=== PATIENT | female | born 1960 | race African-American/Black ===

== ENCOUNTER 2017-10-17 15:27 | Emergency (ER) | payer OTHER ==
[~2017-10-17] VITALS: Ht 167.6 cm; Wt 86.2 kg
--- NOTE | ~2017-10-17 | EKG ---
[address] [place] [address] ELECTROCARDIOGRAM REPORT Name: CHRISTY REICH Room #: DEP [facility]#: [id number] Admission: 10/17/17 Attend Phys: Discharge: 10/17/17 Date of : 62 Report #: [id number] THIS REPORT FOR: //name// [facility] ED Test Date: 2017-10-17 Test Time: 16:23:13 Pat Name: CHRISTY REICH Department: Room: Gender: F Atg Architect: tamar : 1960 Requested By: Emily Carrasquillo Order Number: [id number] MD: Catalino Marin Measurements Intervals [place] Rate: 68 P: 72 [place]: 143 QRS: -5 QRSD: 106 T: 27 QT: 432 QTc: 460 Interpretive Statements Sinus rhythm Low voltage, precordial leads RSR' in V1 or V2, right VCD or RVH No previous ECG available for comparison Electronically Signed On 10-17-2017 20:40:17 CDT by Catalino Marin [email or web address] <ELECTRONICALLY SIGNED> By: Catalino Marin MD 10/17/17 2040 162 22 Catalino Marin MD /VJ
[~2017-10-17 15:27] MED LIST: APAP500 PO; CLARITIN10 MG PO; NORCO 5-325 TA1 EACH PO; PENICILLIN V P500 MG PO; PENICILLIN VK500 M1 PO; PHENERGAN 25 MG25 M1 PO; PROZAC40 MG PO; REMERON15 MG PO; SEROQUEL300 MG PO; XANAX1 MG PO
[2017-10-17 15:52] LABS: URINE BILIRUBIN NEGATIVE (Negative); URINE BLOOD NEGATIVE (Negative); URINE CLARITY CLEAR; URINE COLOR YELLOW; URINE GLUCOSE-RANDOM* NEGATIVE (Negative); URINE KETONES NEGATIVE (Negative); URINE LEUKOCYTES NEGATIVE (Negative); URINE NITRITE NEGATIVE (Negative); URINE PROTEIN (DIPSTICK) NEGATIVE (Negative); URINE SPECIFIC GRAVITY 1.025 (1.005-1.035); URINE UROBILINOGEN 0.2 E.U./dl (0.2-1.0)
[2017-10-17 15:59] LABS: ABSOLUTE NEUTROPHILS 3.2 thou/uL (1.4-8.2); BASOPHILS 0.9 % (0.0-2.0); EOSINOPHILS 2.3 % (0.0-3.0); HEMATOCRIT 41.8 % (37.0-47.0); HEMOGLOBIN 14.1 gm/dL (12.0-15.0); LYMPHOCYTES 36.6 % (24.0-44.0); MCHC 33.6 g/dL (28.0-37.0); MCV 92.2 fL (80.0-100.0); MONOCYTES 6.9 % (1.0-8.0); PLATELET COUNT 209 thou/uL (150-400); POLYS 53.3 % (36.0-66.0); RBC 4.54 mil/uL (4.20-5.00); RDW 14.6 % (10.5-14.5)
[2017-10-17 16:07] LABS: CALCIUM 9.2 mg/dL (8.5-10.1); POTASSIUM 3.8 mmol/L (3.5-5.1)
[2017-10-17 16:19] LABS: LARGE PLATELETS RARE
[2017-10-17 16:33] LABS: ALBUMIN 3.4 g/dL (3.4-5.0); DIRECT BILIRUBIN 0.4 mg/dL (<0.1-0.3); TOTAL BILIRUBIN 0.6 mg/dL (<0.1-1.0); TOTAL PROTEIN 7.5 g/dL (6.4-8.2)
[2017-10-17 18:11] LABS: AMP/METHAMP Negative (Negative); BARBITURATES Negative (Negative); BENZODIAZEPINES POSITIVE (Negative); COCAINE Negative (Negative); METHADONE Negative (Negative); OPIATES Negative (Negative); PCP Negative (Negative)
[2017-10-17] MEDS ORDERED: NORCO 5-325 TA1 EACH PO (20:21)
[2017-10-17 20:39] VITALS: BP 156/76
== END 2017-10-17 20:40 | disposition home or self-care (01) ==
LOC: ER 15:27
PROVIDERS: Emergency Medicine
DX: K80.20 Calculus of gallbladder without cholecystitis without obstruction (principal); R94.5 Abnormal results of liver function studies; F43.10 Post-traumatic stress disorder, unspecified; Z87.891 Personal history of nicotine dependence; Z88.1 Allergy status to other antibiotic agents; Z88.6 Allergy status to analgesic agent

== ENCOUNTER 2020-06-01 13:17 | Emergency (ER) | payer OTHER ==
[~2020-06-01] VITALS: Ht 167.6 cm; Wt 90.7 kg
[2020-06-01] MEDS ORDERED: CATAPRES0.1 MG PO (13:30)
[2020-06-01] MEDS ORDERED: VITAMIN D325 MC1 PO (13:30)
[2020-06-01] MEDS ORDERED: INDERAL LA120 M1 PO (13:30)
[2020-06-01] MEDS ORDERED: ASA81BEC PO (13:31)
--- NOTE | 2020-06-01 15:40 | EKG ---
[place] [address] [address] [employer] [place] [address] ELECTROCARDIOGRAM REPORT Name: CHRISTY REICH Room #: REG [facility]#: [id number] Admission: 06/01/20 Attend Phys: Discharge: Date of : 62 Report #: [id number] [facility] ED Test Date: 2020-06-01 Test Time: 14:54:41 Pat Name: CHRISTY REICH Department: Room: Gender: F Hydrodynamicist: ROSANGELA : 1960 Requested By: Douglas Clemente Order Number: [id number] MD: Catalino Marin Measurements Intervals [place] Rate: 67 P: 64 [place]: 145 QRS: -13 QRSD: 99 T: 7 QT: 399 QTc: 422 Interpretive Statements Sinus rhythm Low voltage, precordial leads RSR' in V1 or V2, right VCD or RVH Compared to ECG 10/17/2017 16:23:13 No significant changes Electronically Signed On 06-01-2020 15:40:27 LOG SAWYER by Catalino Marin [email or web address] <ELECTRONICALLY SIGNED> By: Catalino Marin MD 06/01/20 1540 1454 1454 Catalino Marin MD /VJ
[2020-06-01 16:29] LABS: ABSOLUTE NEUTROPHILS 5.2 thou/uL (1.4-8.2); EOSINOPHILS 2.5 % (0.0-3.0); HEMATOCRIT 44.1 % (37.0-47.0); HEMOGLOBIN 14.5 gm/dL (12.0-15.0); LYMPHOCYTES 37.1 % (24.0-44.0); MCH 31.3 pg (26.0-34.0); MCHC 32.8 g/dL (28.0-37.0); MCV 95.4 fL (80.0-100.0); PLATELET COUNT 249 thou/uL (150-400); POLYS 53.4 % (36.0-66.0); RBC 4.63 mil/uL (4.20-5.00); RDW 13.5 % (10.5-14.5); WBC 9.7 thou/uL (4.0-11.0)
[2020-06-01 16:38] LABS: ANION GAP 10 mmol/L (7-16); BUN 7 mg/dL (7-18); CALCIUM 9.3 mg/dL (8.5-10.1); CHLORIDE 106 mmol/L (98-107); CO2 29 mmol/L (21-32); GLUCOSE 106 mg/dL (74-106); POTASSIUM 4.1 mmol/L (3.5-5.1); SODIUM 145 mmol/L (136-145)
[2020-06-01 16:49] LABS: ALBUMIN 3.6 g/dL (3.4-5.0); LIPASE 107 U/L (73-393); SGOT 39 U/L (15-37); SGPT 59 U/L (30-65); TOTAL BILIRUBIN 0.2 mg/dL (0.2-1.0); TOTAL PROTEIN 7.7 g/dL (6.4-8.2); TROPONIN-I <0.06 ng/mL (<0.06)
[2020-06-01 17:10] LABS: URINE BILIRUBIN NEGATIVE (Negative); URINE BLOOD 2+ (Negative); URINE CLARITY CLEAR; URINE COLOR YELLOW; URINE GLUCOSE-RANDOM* NEGATIVE (Negative); URINE KETONES NEGATIVE (Negative); URINE LEUKOCYTES-REFLEX NEGATIVE (Negative); URINE NITRITE-REFLEX NEGATIVE (Negative); URINE PROTEIN (DIPSTICK) NEGATIVE (Negative); URINE UROBILINOGEN 0.2 E.U./dl (0.2-1.0)
[2020-06-01 17:24] LABS: SQUAMOUS >10 Many /LPF (0-3)
[2020-06-01 17:25] LABS: BACTERIA-REFLEX None Seen /HPF (None Seen); CASTS None Seen /LPF (None Seen); CRYSTALS None Seen /LPF (None Seen); URINE RBC 3-10 Few /HPF (0-2); URINE WBC-REFLEX 0-5 Rare /HPF (0-5)
[2020-06-01] MEDS ORDERED: PROAIR HFA8.5 GM INH (19:08)
[2020-06-01] MEDS ORDERED: DOXYCYCLINE 10100 MG PO (19:08)
[2020-06-01 19:17] VITALS: BP 130/70
== END 2020-06-01 19:17 | disposition home or self-care (01) ==
LOC: ER 13:17
PROVIDERS: Physician Assistant
DX: R06.02 Shortness of breath (principal); R00.2 Palpitations; R10.31 Right lower quadrant pain; R10.32 Left lower quadrant pain; Z87.891 Personal history of nicotine dependence; Z79.899 Other long term (current) drug therapy; Z88.1 Allergy status to other antibiotic agents; Z88.8 Allergy status to other drugs, medicaments and biological substances; Z20.828 Contact with and (suspected) exposure to other viral communicable diseases

== ENCOUNTER 2021-05-14 09:42 | Emergency (ER) | payer OTHER ==
[~2021-05-14] VITALS: Ht 167.6 cm; Wt 72.6 kg
--- NOTE | ~2021-05-14 | EMS ---
[facility] [address] [place] [address] EMS Patient Care Report Name: CHRISTY REICH Room #: DEP [facility]#: [id number] Admission: 05/14/21 Attend Phys: Discharge: 05/14/21 Date of : 62 Report #: [id number] THIS REPORT FOR: //name// Report Transmitted: 05/17/2021 10:31 EMS Care Summary [place], [place]/[facility] Incident [id number] @ 05/14/2021 08:59 Incident Location [address] [place] [address] Patient CHRISTY REICH Female, 60 Years 1960 Patient Address [address] [place], [place] [id number] Patient History Bipolar II Disorder, Patient Allergies No known allergies, Patient Medications Propranolol, Xanax, Aspirin, Quetiapine, Chief Complaint TACHYCARDIA Disposition Transported No Lights/[place] Dispatch Reason Sick Person Transported To [facility] Narrative PT FOUND SITTING ON STRETCHER IN BLS42. BLS42 CREW STATES THAT PT C/O ELEVATED HEART RATE. THEY STATES HER HEART RATE IS ABOVE 100, WHICH IS THE CUTOFF FOR [address] [address] EMS Patient Care Report Name: CHRISTY REICH Room #: DEP [facility]#: [id number] Admission: 05/14/21 Attend Phys: Discharge: 05/14/21 Date of : 62 Report #: [id number] BLS TRANSPORT. PT STATES THAT SHE WOKE UP AND "COULD FEEL HER HEART RACING". PT STATES SHE DOES NOT BELIEVE SHE HAS EVER FELT THIS BEFORE. PT STATES SHE TOOK ASA PRIOR TO EMS ARRIVAL. PT DENIES ANY CHEST PAIN. PTS HR NOTED. PT HAS NO VISIBLE TRAUMA. PT HAS NO COMPLAINTS OF PAIN, SOB, CP OR TRAUMA. NO CHANGES NOTED ENROUTE. Initial Vitals @08:55P: 149,BP: 133/92,CO: 12,SpO2: 98, @09:01P: 133,BP: 120/85,CO: 7,SpO2: 99, @09:20P: 120,R: 16,BP: 110/60,Pain: 0/10,GCS: 15,Revised Trauma: 12, Assessments @09:15MENTAL:No Abnormalities,SKIN:No Abnormalities,HEENT:Head/Face: No Abnormalities,LUNG SOUNDS:General: No Abnormalities,ABDOMEN:General: No Abnormalities,PELVIS//GI:No Abnormalities,EXTREMITIES:PULSE:NEURO:No Abnormalities, Impression Cardiac arrhythmia/dysrhythmia Procedures @09:15 ALS Assessment Response: UnchangedSucceeded @PTAStretcher Response: Unchanged Timeline SUPERVISOR CARDING,Stretcher,Response: Unchanged 08:37,Call Received 08:37,Dispatch Notified 08:55,BP: 133/92 M,PULSE: 149,RR: R,SPO2: 98 Ox,ETCO2: ,BG: ,PAIN: ,GCS: , 08:59,Dispatched 09:00,En Route 09:01,BP: 120/85 M,PULSE: 133,RR: R,SPO2: 99 Ox,ETCO2: ,BG: ,PAIN: ,GCS: , 09:14,On Scene 09:15,At Patient 09:15,ALS Assessment,Response: UnchangedSucceeded, 09:20,BP: 110/60 M,PULSE: 120,RR: 16 R,SPO2: Ox,ETCO2: ,BG: ,PAIN: 0,GCS: 15, 09:21,Depart Scene 09:39,At Destination 09:47,Call Closed Disclaimer v1.1 Copyright 2021 [employer] This EMS Care Summary contains data elements from the applicable legal record (which may be displayed differently). It is designed to provide pertinent information for the following purposes: continuity of care, clinical quality, [address] [address] EMS Patient Care Report Name: CHRISTY REICH Room #: DEP [facility]#: [id number] Admission: 05/14/21 Attend Phys: Discharge: 05/14/21 Date of : 62 Report #: [id number] and state data reporting. The complete legal record is available to ED staff and administrators of the receiving hospital in [employer]'s Patient Tracker. All data is provided "as is."
[~2021-05-14 09:42] MED LIST changes: +ASA81BEC PO; +CATAPRES0.1 MG PO; +DOXYCYCLINE 10100 MG PO; +INDERAL LA120 M1 PO; +PROAIR HFA8.5 GM INH; +VITAMIN D325 MC1 PO
[2021-05-14 10:11] LABS: ABSOLUTE NEUTROPHILS 4.3 thou/uL (1.4-8.2); BASOPHILS 0.5 % (0.0-2.0); EOSINOPHILS 2.8 % (0.0-3.0); HEMATOCRIT 43.6 % (37.0-47.0); HEMOGLOBIN 14.5 gm/dL (12.0-15.0); LYMPHOCYTES 37.9 % (24.0-44.0); MCH 31.3 pg (26.0-34.0); MCHC 33.3 g/dL (28.0-37.0); MONOCYTES 7.1 % (1.0-8.0); PLATELET COUNT 225 thou/uL (150-400); POLYS 51.7 % (36.0-66.0); RBC 4.64 mil/uL (4.20-5.00); RDW 13.4 % (10.5-14.5); WBC 8.2 thou/uL (4.0-11.0)
[2021-05-14 10:35] LABS: CREATININE 1.1 mg/dL (0.6-1.0); POTASSIUM 3.2 mmol/L (3.5-5.1)
[2021-05-14 10:45] LABS: ALBUMIN 3.4 g/dL (3.4-5.0); MAGNESIUM 1.8 mg/dL (1.8-2.4); TOTAL BILIRUBIN 0.3 mg/dL (0.2-1.0); TOTAL PROTEIN 7.2 g/dL (6.4-8.2)
[2021-05-14 14:12] VITALS: BP 134/66
--- NOTE | 2021-05-15 10:29 | EKG ---
[place] [address] [address] [facility] [place] [address] ELECTROCARDIOGRAM REPORT Name: CHRISTY REICH Room #: DEP [facility]#: [id number] Admission: 05/14/21 Attend Phys: Discharge: 05/14/21 Date of : 62 Report #: [id number] [facility] ED Test Date: 2021-05-14 Test Time: 13:17:28 Pat Name: CHRISTY REICH Department: Room: Gender: F Acute Care Registered Nurse: mpark : 1960 Requested By: Carlyle Aldridge Order Number: [id number] MD: Tc Haynes Measurements Intervals [place] Rate: 85 P: 84 [place]: 146 QRS: -8 QRSD: 93 T: 38 QT: 378 QTc: 450 Interpretive Statements Sinus rhythm Low voltage, precordial leads Abnormal R-wave progression, early transition Compared to ECG 05/14/2021 09:47:36 Low QRS voltage now present Sinus tachycardia no longer present T-wave abnormality no longer present Electronically Signed On 05-15-2021 10:29:33 WELDING MACHINE ASSEMBLER by Tc Haynes [email or web address] <ELECTRONICALLY SIGNED> By: Tc Haynes MD, FAC 05/15/21 1029 1317 1317 Tc Haynes MD, [facility] /EPI
--- NOTE | 2021-05-15 10:29 | EKG ---
[address] [place] [address] ELECTROCARDIOGRAM REPORT Name: CHRISTY REICH Room #: DEP [facility]#: [id number] Admission: 05/14/21 Attend Phys: Discharge: 05/14/21 Date of : 62 Report #: [id number] [facility] ED Test Date: 2021-05-14 Test Time: 09:47:36 Pat Name: CHRISTY REICH Department: Room: Gender: F [place] Actor: shandra : 1960 Requested By: Carlyle Aldridge Order Number: [id number] MD: Tc Haynes Measurements Intervals [place] Rate: 114 P: 77 [place]: 135 QRS: -15 QRSD: 96 T: 20 QT: 346 QTc: 477 Interpretive Statements Sinus tachycardia Borderline left axis deviation RSR' in V1 or V2, probably normal variant Compared to ECG 06/01/2020 14:54:41 T-wave abnormality now present Sinus rhythm no longer present Right ventricular hypertrophy no longer present Electronically Signed On 05-15-2021 10:29:10 HEAT AND FROST INSULATOR HELPER by Tc Haynes [email or web address] <ELECTRONICALLY SIGNED> By: Tc Haynes MD, FACC 05/15/21 1029 0947 0947 Tc Haynes MD, FAC /EPI
== END 2021-05-14 14:14 | disposition home or self-care (01) ==
LOC: ER 09:42
PROVIDERS: Emergency Medicine
DX: R00.2 Palpitations (principal); Z20.822 Contact with and (suspected) exposure to COVID-19; R07.89 Other chest pain; I10 Essential (primary) hypertension; Z90.711 Acquired absence of uterus with remaining cervical stump; Z98.890 Other specified postprocedural states; Z79.82 Long term (current) use of aspirin; Z79.899 Other long term (current) drug therapy; Z88.1 Allergy status to other antibiotic agents; Z88.0 Allergy status to penicillin; Z88.8 Allergy status to other drugs, medicaments and biological substances; Z87.891 Personal history of nicotine dependence